=== PATIENT | male | born 1975 | race African-American/Black ===

== ENCOUNTER 2018-04-26 07:56 | Emergency (ER) | payer OTHER ==
--- NOTE | 2018-04-26 09:30 | ER Document Report ---
ED Extremity Problem, Lower - General Chief Complaint: Knee Injury Stated Complaint: FALL/KNEE PAIN Time Seen by Provider: 04/26/18 09:06 Information source: Patient Notes: Patient was walking excellently slipped this morning twisting his left knee. He states he did not fall onto the knee. He states that there is some mild progressive swelling of the left knee. He denies any incident causing slippage such as lightheadedness, dizziness, chest pain, or shortness of breath. Patient complains of pain only to the left knee. TRAVEL OUTSIDE OF THE [place] IN LAST 30 DAYS: No - Related Data Allergies/Adverse Reactions: No Known Allergies Allergy (Verified 04/26/18 07:56) Past Medical History - Social History Smoking Status: Never Smoker Family History: Reviewed & Not Pertinent Patient has suicidal ideation: No Patient has homicidal ideation: No - Past Medical History Cardiac Medical History: Reports: Hx Hypertension Renal/ Medical History: Denies: Hx Peritoneal Dialysis Past Surgical History: Reports: Hx Orthopedic Surgery Physical Exam - Vital signs Vitals: Temp Pulse Resp BP Pulse Ox 98.4 F 77 16 139/90 H 99 04/26/18 08:01 04/26/18 08:01 04/26/18 08:01 04/26/18 08:01 04/26/18 08:01 Notes: Reviewed vital signs and nursing note as charted by RN. CONSTITUTIONAL: Alert and oriented and responds appropriately to questions. Well-appearing; well-nourished HEAD: Normocephalic; atraumatic EXT: Patient has some mild swelling to the left knee. No obvious ligamentous laxity. Neurovascularly intact distally with strong pulses, capillary refill, plantar and flexor extension SKIN: No acute lesions noted NEURO: CN 2-12 intact; 5/5 bilateral upper and lower extremity strength with sensation intact to light touch PSYCH: The patient's mood and manner are appropriate. Grooming and personal hygiene are appropriate. Course - Re-evaluation Re-evalutation: 04/26/18 09:29 Given the history and physical examination we will perform an x-ray of the left knee and provide pain medications. If the x-ray shows no obvious fractures we will place the patient in a knee immobilizer, crutches, and have the patient follow-up with orthopedics for possibly reevaluation and/or MRI. 03/16/19 10:38 X-ray shows no obvious fractures. The tech will place the patient in a knee immobilizer and will provide crutches with strict return precautions and follow- up with orthopedics. - Vital Signs Vital signs: Temp Pulse Resp BP Pulse Ox 98.4 F 77 16 139/90 H 99 04/26/18 08:01 04/26/18 08:01 04/26/18 08:01 04/26/18 08:01 04/26/18 08:01 Discharge - Discharge Clinical Impression: Left knee sprain Qualifiers: Encounter type: initial encounter Involved ligament of knee: unspecified ligament Qualified Code(s): S83.92XA - Sprain of unspecified site of left knee, initial encounter Condition: Good Disposition: HOME, SELF-CARE Additional Instructions: Please ice, rest, and elevate the leg when not ambulating. Please take 600 mg of Motrin and 1 g of Tylenol every 6 hours as needed for pain. Please follow-up with orthopedics as we have provided. Referrals: HOA LUO, [ACTIVE STAFF] - Follow up as needed
[2018-04-26] MEDS ORDERED: HYDROCODONE/ACETAMINOPHEN 5-325 MG TABLET PO ONE (10:04)
--- NOTE | 2018-04-26 10:11 | RADIOLOGY REPORT (SQ) ---
EXAM DESCRIPTION: KNEE LEFT 4 VIEW COMPLETED DATE/TIME: 04/26/2018 10:00 am REASON FOR STUDY: 16; fall COMPARISON: None. NUMBER OF VIEWS: Four views. TECHNIQUE: AP, lateral, and both oblique radiographic images acquired of the left knee. LIMITATIONS: None. FINDINGS: MINERALIZATION: Normal. BONES: No acute fracture or dislocation of the right knee. There is a possible chronic fracture defo rmity of the medial tibial plateau. Correlate with clinical history. JOINT: No effusion. SOFT TISSUES: No soft tissue swelling. No radio-opaque foreign body. OTHER: No other significant finding. IMPRESSION: No acute fracture or dislocation of the right knee. There is a possible chronic fractur e deformity of the medial tibial plateau. There is no knee joint effusion. Correlate with clinical history. TECHNICAL DOCUMENTATION: JOB ID: [id number] [employer]- All Rights Reserved Reading location - IP/workstation name: [email or web address]
[2018-04-26 10:58] VITALS: BP 143/95
== END 2018-04-26 10:59 | disposition home or self-care (01) ==
LOC: ER 07:56
DX: S83.92XA Sprain of unspecified site of left knee, initial encounter (principal); M25.562 Pain in left knee; W18.40XA Slipping, tripping and stumbling without falling, unspecified, initial encounter; I10 Essential (primary) hypertension
CPT/HCPCS: 99283; 73564; L1830

== ENCOUNTER 2018-10-28 16:20 | Emergency (ER) | payer OTHER ==
--- NOTE | 2018-10-28 16:50 | RADIOLOGY REPORT (SQ) ---
EXAM DESCRIPTION: CHEST SINGLE VIEW COMPLETED DATE/TIME: 10/28/2018 4:38 pm REASON FOR STUDY: bed 19 cp COMPARISON: None. NUMBER OF VIEWS: One view. TECHNIQUE: Single frontal radiographic view of the chest acquired. LIMITATIONS: Low lung volumes. FINDINGS: LUNGS AND PLEURA: No opacities, masses or pneumothorax. No pleural effusion. MEDIASTINUM AND HILAR STRUCTURES: No masses. Contour normal. HEART AND VASCULAR STRUCTURES: Heart normal in size. Normal vasculature. BONES: No acute findings. HARDWARE: None in the chest. OTHER: No other significant finding. IMPRESSION: Negative chest allowing for low lung volumes. TECHNICAL DOCUMENTATION: JOB ID: [id number] [employer]- All Rights Reserved Reading location - IP/workstation name: [email or web address]
[2018-10-28] MEDS ORDERED: MORPHINE SULFATE 10 MG/ML INJ IV ONE ×2 (16:59→18:25)
[2018-10-28] MEDS ORDERED: ONDANSETRON HCL INJ/PF 4 MG/2 ML SDV IV ONE (16:59)
[2018-10-28 17:06] LABS: ABSOLUTE BASOPHILS # (AUTO) 0.1 10^3/uL (0.0-0.2); ABSOLUTE EOSINOPHILS # (AUTO) 0.1 10^3/uL (0.0-0.6); ABSOLUTE LYMPHOCYTES (AUTO) 2.7 10^3/uL (0.5-4.7); ABSOLUTE MONOCYTES (AUTO) 0.5 10^3/uL (0.1-1.4); BASOPHILS % (AUTO) 0.8 % (0-2); EOSINOPHILS % (AUTO) 1.3 % (0-6); HEMATOCRIT 44.2 % (37.9-51.0); HEMOGLOBIN 14.9 g/dL (13.5-17.0); LYMPHOCYTES % (AUTO) 42.8 % (13-45); MEAN CORPUSCULAR HEMOGLOBIN 28.5 pg (27.0-33.4); MEAN CORPUSCULAR HGB CONC 33.7 g/dL (32.0-36.0); MEAN CORPUSCULAR VOLUME 85 fl (80-97); PLATELET COUNT 225 10^3/uL (150-450); RED BLOOD COUNT 5.23 10^6/uL (4.35-5.55); RED CELL DISTRIBUTION WIDTH 14.1 % (11.5-14.0); SEGMENTED NEUTROPHILS % (AUTO) 47.1 % (42-78); TOTAL CELLS COUNTED % (AUTO) 100 %; WHITE BLOOD COUNT 6.3 10^3/uL (4.0-10.5)
--- NOTE | 2018-10-28 17:09 | ER Document Report ---
ED General - General Chief Complaint: Chest Pain Stated Complaint: CHEST PAIN Time Seen by Provider: 10/28/18 16:57 Primary Care Provider: HOA VAZQUEZ MD [ACTIVE STAFF] - Follow up in 3-5 days [facility] [Primary Care Provider] - Follow up as needed TRAVEL OUTSIDE OF THE [place] IN LAST 30 DAYS: No - HPI Notes: Patient presents with sudden onset of sharp epigastric pain that started approximately 330 doing nothing. It radiates to his right upper quadrant. He still has his gallbladder. No history of heart attack or stroke. No recent cough congestion fevers. Mild nausea with no vomiting. Lower abdominal pain or diarrhea. - Related Data Allergies/Adverse Reactions: No Known Allergies Allergy (Verified 04/26/18 07:56) Past Medical History - Social History Smoking Status: Unknown if Ever Smoked Family History: Reviewed & Not Pertinent - Past Medical History Cardiac Medical History: Reports: Hx Hypertension Renal/ Medical History: Denies: Hx Peritoneal Dialysis Past Surgical History: Reports: Hx Orthopedic Surgery Review of Systems - Review of Systems Constitutional: No symptoms reported EENT: No symptoms reported Cardiovascular: No symptoms reported Respiratory: No symptoms reported Gastrointestinal: See HPI Genitourinary: No symptoms reported Male Genitourinary: No symptoms reported Musculoskeletal: No symptoms reported Skin: No symptoms reported Hematologic/Lymphatic: No symptoms reported Neurological/Psychological: No symptoms reported Physical Exam - Vital signs Vitals: Resp Pulse Ox 23 H 96 10/28/18 16:30 10/28/18 16:30 - General General appearance: Appears well, Alert, Anxious - HEENT Head: Normocephalic, Atraumatic Eyes: Normal Conjunctiva: Normal Cornea: Normal Extraocular movements intact: Yes Pupils: PERRL - Respiratory Respiratory status: No respiratory distress Chest status: Nontender Breath sounds: Normal Chest palpation: Other - Reproducible pain when pushing in right upper quadrant - Cardiovascular Rhythm: Regular Heart sounds: Normal auscultation Murmur: No Friction rub: No Marvel's crunch: No Gallop: None auscultated - Abdominal Inspection: Normal Distension: No distension Bowel sounds: Normal Tenderness: Sue's sign - Back Back: Normal, Nontender - Extremities General upper extremity: Normal inspection, Normal ROM General lower extremity: Normal inspection, Normal ROM - Neurological Neuro grossly intact: Yes Cognition: Normal Orientation: AAOx4 Course - Re-evaluation Re-evalutation: 10/28/18 18:39 Patient's discomfort controlled emergency department. Patient shows gallstones on ultrasound without any evidence of infection. Will provide surgery referral and return precautions regarding any fever or uncontrolled vomiting or actual pain return to emergency department for further evaluation. - Vital Signs Vital signs: Temp Pulse Resp BP Pulse Ox 97.8 F 15 149/97 H 96 10/28/18 18:49 10/28/18 18:36 10/28/18 18:36 10/28/18 18:36 - Laboratory Result Diagrams: 10/28/18 16:00 10/28/18 16:00 Laboratory results interpreted by me: 10/28/18 10/28/18 16:00 16:00 RDW 14.1 H AST 84 H Creatine Kinase 1087 H - EKG Interpretation by Me EKG shows normal: Sinus rhythm Rate: Normal Rhythm: NSR - Normal axis, normal intervals, no concerning ST depressions or elevations Discharge - Discharge Clinical Impression: Biliary colic Condition: Good Disposition: HOME, SELF-CARE Instructions: Antacid Therapy ([facility]), Gallbladder Disease ([facility]), Low-Fat Diet ([facility]) Prescriptions: Ranitidine HCl [Zantac] 150 mg PO BID #60 tablet Ondansetron [Zofran Odt 4 mg Tablet] 1 tab PO ASDIR PRN #15 tab.rapdis PRN Reason: For Nausea/Vomiting Referrals: [facility] [Primary Care Provider] - Follow up as needed HOA VAZQUEZ MD [ACTIVE STAFF] - Follow up in 3-5 days
[2018-10-28 17:12] LABS: ALBUMIN 4.9 g/dL (3.5-5.0); ALKALINE PHOSPHATASE 65 U/L (38-126); ANION GAP 11 (5-19); ASPARTATE AMINO TRANSFERASE 84 U/L (17-59); BILIRUBIN,DIRECT 0.3 mg/dL (0.0-0.4); BILIRUBIN,TOTAL 0.5 mg/dL (0.2-1.3); BLOOD UREA NITROGEN 11 mg/dL (7-20); CALCIUM 9.7 mg/dL (8.4-10.2); CARBON DIOXIDE 30 mmol/L (22-30); CHLORIDE 103 mmol/L (98-107); CREATINE KINASE 1087 U/L (55-170); GLUCOSE 92 mg/dL (75-110); POTASSIUM 3.7 mmol/L (3.6-5.0); TOTAL PROTEIN 7.8 g/dL (6.3-8.2)
[2018-10-28 18:01] LABS: CREATINE KINASE MB 1.19 ng/mL (<4.55)
[2018-10-28 18:02] LABS: TROPONIN I < 0.012 ng/mL
--- NOTE | 2018-10-28 18:33 | RADIOLOGY REPORT (SQ) ---
EXAM DESCRIPTION: U/S ABDOMEN LIMITED W/O DOP COMPLETED DATE/TIME: 10/28/2018 6:16 pm REASON FOR STUDY: RUQ pain COMPARISON: None. TECHNIQUE: Dynamic and static grayscale images acquired of the abdomen and recorded on PACS. Additio nal selected color Doppler and spectral images recorded. LIMITATIONS: Limited visualization. Poor acoustical window FINDINGS: PANCREAS: Not visualized. LIVER: Normal size Mild fatty infiltration. No focal masses. LIVER VASCULATURE: Normal directional flow of the main portal vein and hepatic veins. GALLBLADDER: Gallstone(s). No pericholecystic fluid. No wall thickening. ULTRASOUND-DETECTED MINA'S SIGN: Negative. INTRAHEPATIC DUCTS AND COMMON DUCT: CBD and intrahepatic ducts normal caliber. No filling defects. INFERIOR VENA CAVA: Normal flow. AORTA: No aneurysm. RIGHT KIDNEY: Normal size. Normal echogenicity. No solid or suspicious masses. No hydronephros is. No calcifications. PERITONEAL AND RIGHT PLEURAL SPACE: No ascites or effusions. OTHER: No other significant findings. IMPRESSION: Cholelithiasis. No evidence of acute cholecystitis. TECHNICAL DOCUMENTATION: JOB ID: [id number] [employer]- All Rights Reserved Reading location - IP/workstation name: [email or web address]
[2018-10-28 18:38] VITALS: BP 149/97
--- NOTE | 2018-10-28 18:41 | EKG REPORT ---
SEVERITY:- NORMAL ECG - SINUS RHYTHM : Confirmed by: Milton Ortiz MD 28-Oct-2018 18:39:45
== END 2018-10-28 18:55 | disposition home or self-care (01) ==
LOC: ER 16:20
DX: K80.20 Calculus of gallbladder without cholecystitis without obstruction (principal); R10.13 Epigastric pain; R10.11 Right upper quadrant pain; R11.0 Nausea; I10 Essential (primary) hypertension
CPT/HCPCS: 93005; 96376; 99284; 96374; 96375; 36415; 82553; 82550; 83690; 83735; 85025; 80053; 84484; 71045; 76705; 93010; J2270; J2405

== ENCOUNTER → 2018-11-19 | Outpatient (CLI) | payer OTHER ==
[2018-11-19 17:04] LABS: ANION GAP 11 (5-19); BLOOD UREA NITROGEN 12 mg/dL (7-20); CALCIUM 10.1 mg/dL (8.4-10.2); CARBON DIOXIDE 32 mmol/L (22-30); CHLORIDE 98 mmol/L (98-107); GLUCOSE 96 mg/dL (75-110); POTASSIUM 4.3 mmol/L (3.6-5.0)
== END ==
LOC: OD 16:05
PROVIDERS: ATTEND Surgery
DX: Z01.818 Encounter for other preprocedural examination (principal); K42.0 Umbilical hernia with obstruction, without gangrene; I10 Essential (primary) hypertension; G47.30 Sleep apnea, unspecified; E66.9 Obesity, unspecified; Z86.010 Personal history of colon polyps; Z78.9 Other specified health status
CPT/HCPCS: 36415; 80048

== ENCOUNTER 2018-11-27 05:36 | Day surgery (SDC) | payer OTHER ==
[~2018-11-27 05:36] MED LIST: ACETAMINOPHEN 325 MG TABLET PO PRN; CEFAZOLIN SODIUM 2 GM in DEXTROSE 5%-WATER 100 ML IV PRN; IBUPROFEN 800 MG in NORMAL SALINE 250 ML IV PRN; LACTATED RINGERS 1000 ML IV PRN; LIDOCAINE 0.5% INJ-PF (5 MG/ML) 50 ML SDV SUBCUT PRN; PREGABALIN 50 MG CAPSULE PO PRN
[2018-11-27] MEDS ORDERED: PREGABALIN 50 MG CAPSULE ONE (06:04)
[2018-11-27] MEDS ORDERED: ACETAMINOPHEN 325 MG TABLET ONE (06:04)
[2018-11-27] MEDS ORDERED: BUPIVACAINE HCL 0.25 % INJ/PF (2.5 MG/1 ML) 30 ML VIAL ONE (06:44)
[2018-11-27] MEDS ORDERED: MIDAZOLAM 2 MG/2 ML INJ ONE (06:57)
[2018-11-27] MEDS ORDERED: FENTANYL CITRATE INJ/PF 100 MCG/2 ML AMPUL ONE (06:57)
[2018-11-27] MEDS ORDERED: HYDROMORPHONE HCL INJ/PF 2 MG/ML AMPULE ONE (06:57)
[2018-11-27] MEDS ORDERED: PROPOFOL INJ 200 MG/20 ML VIAL IV ONE (06:58)
[2018-11-27] MEDS ORDERED: LIDOCAINE 2% INJ (20 MG/ML) 20 ML MDV ONE (06:59)
[2018-11-27] MEDS ORDERED: MEPERIDINE HCL/PF INJ 25 MG/1 ML DISP.SYRIN IV PRN (07:55)
[2018-11-27] MEDS ORDERED: OXYCODONE-ACETAMINOPHEN 5-325 MG TABLET PO PRN ×2 (07:55)
[2018-11-27] MEDS ORDERED: MORPHINE SULFATE 10 MG/ML INJ IV PRN (07:55)
[2018-11-27] MEDS ORDERED: PROMETHAZINE HCL INJ 25 MG/1 ML VIAL IV PRN (07:55)
[2018-11-27] MEDS ORDERED: FENTANYL CITRATE INJ/PF 100 MCG/2 ML AMPUL IV PRN ×3 (07:55)
[2018-11-27] MEDS ORDERED: DIPHENHYDRAMINE HCL 50 MG/ML VIAL IV PRN (07:55)
[2018-11-27] MEDS ORDERED: ONDANSETRON HCL INJ/PF 4 MG/2 ML SDV IV PRN (07:55)
--- NOTE | 2018-11-27 09:53 | Discharge Summary ---
Discharge Summary (SDC) - Discharge Final Diagnosis: Symptomatic umbilical hernia. Date of Surgery: 11/27/18 Discharge Date: 11/27/18 Condition: Stable Treatment or Instructions: Discharge home. Diet as tolerated. Activity: No lifting greater than 10 pounds x 6 weeks. Follow-up with me in 7 to 10 days. [place] 10/325 mg p.o. every 6 hours as needed for pain. Ibuprofen 800 mg p.o. 3 times daily with meals. Okay to shower on Saturday. No tub baths or swimming pools x2 weeks. Referrals: [facility] [Primary Care Provider] - Discharge Diet: As Tolerated Respiratory Treatments at Home: Deep Breathing/Coughing, Incentive Spirometer Discharge Activity: No Lifting Over 10 Pounds, No Lifting/Push/Pulling Home Care Assistance: None Needed Report the Following to Your Physician Immediately: Shortness of Breath, Nausea, Vomiting, Increase in Pain, Fever over 101 Degrees, Unusual Bleeding
[2018-11-27] MEDS ORDERED: ACETAMINOPHEN 1,000 MG/100 ML RTUPB IV ONE ×2 (10:04→10:45)
[2018-11-27] MEDS ORDERED: HYDROCODONE/ACETAMINOPHEN 10-325 MG TABLET PO PRN (10:22)
--- NOTE | 2018-11-27 10:50 | Operative Report ---
Nonrecallable Operative Report DATE OF SURGERY: 11/27/18 PREOPERATIVE DIAGNOSIS: Symptomatic, incarcerated umbilical hernia POSTOPERATIVE DIAGNOSIS: Symptomatic, incarcerated umbilical hernia OPERATION: Robot-assisted laparoscopic umbilical hernia repair with mesh. SURGEON: CHANEL OCASIO ANESTHESIA: GA TISSUE REMOVED OR ALTERED: None COMPLICATIONS: None apparent ESTIMATED BLOOD LOSS: Minimal PROCEDURE: Drains/implants: 10 x [address] hernia mesh. Procedure in detail: After informed consent was obtained, the patient was brought to the operating room and laid in the supine position. The area of the abdomen was prepped and draped in a normal sterile fashion. A 15 blade scalpel was used to create an incision in the left upper quadrant. The 5 mm trocar and 5 mm camera were inserted into the abdominal cavity through the use of the Optiview technique. Once the trocar was inserted, gas insufflation was attached and pneumoperitoneum was achieved. Next a left lower quadrant 8 mm robotic trocar was placed under direct laparoscopic visualization, as was a 12 mm left lateral balloon trocar. The 5 mm trocar was then removed, and replaced with an 8 mm robotic trocar. The robot was then brought over the patient and docked appropriately. I then assumed my position at the surgeon's console. Attention was then turned to the umbilical hernia defect. There was incarcerated omentum within the defect. The omentum was reduced using blunt dissection, sharp dissection, and electrocautery. Next, all the preperitoneal fat was freed from the defect using sharp dissection, blunt dissection, and electrocautery. Once this was completed, the defect was closed using #1 V Lock Suture in simple running fashion. After this was completed, a 10 x [address] hernia mesh was inserted into the abdominal cavity. It was apposed to the anterior abdominal wall using the EPS. The mesh was sutured to the anterior abdominal wall using 2-0 permanent V lock suture in simple running fashion. The mesh was then inspected, and found to lie in very good position. The robot was then undocked, and I scrubbed back into the case. The 8 mm trocar sites were closed using 0 Vicryl suture in simple interrupted fashion with the aid of the Rc-Alessandro device. The 12 mm trocar site was closed using 0 Vicryl suture in [id number] fashion, also with the aid of the Rc-Alessandro device. The overlying skin was closed using 4-0 Vicryl Rapide suture in subcuticular fashion. Dressings were placed, and the procedure was concluded. All sponge, instrument, needle counts were correct x2. Condition: Stable. Marlen Wilkins PA-C was scrubbed and present the entirety of the procedure. She assisted with all portions of the procedure including placement of the trochars, docking of the robot, exchanging the robotic instruments, insertion of the mesh, closure of the fascia, and closure of the skin.
[2018-11-27] MEDS ORDERED: GLYCOPYRROLATE INJ 0.4 MG/2 ML VIAL ONE (10:58)
[2018-11-27] MEDS ORDERED: DEXAMETHASONE SOD PHOSPHATE INJ 4 MG/1 ML VIAL ONE (10:58)
[2018-11-27] MEDS ORDERED: SUCCINYLCHOLINE CHLORIDE INJ 200 MG/10 ML VIAL ONE (10:58)
[2018-11-27] MEDS ORDERED: ONDANSETRON HCL INJ/PF 4 MG/2 ML SDV ONE (10:58)
[2018-11-27] MEDS ORDERED: NEOSTIGMINE METHYLSULFATE 10 MG/10 ML VIAL ONE (10:58)
[2018-11-27] MEDS ORDERED: ROCURONIUM BROMIDE INJ 50 MG/5 ML VIAL IV ONE (10:58)
[2018-11-27] MEDS ORDERED: HYDROCODONE/ACETAMINOPHEN 10-325 MG TABLET ONE (11:10)
[2018-11-27 12:48] VITALS: BP 146/89
[2018-11-27] MEDS ORDERED: IBUPROFEN 800 MG TABLET PO SCH (14:00)
== END 2018-11-27 12:15 | disposition home or self-care (01) ==
LOC: OROUT 05:36
PROVIDERS: ATTEND Surgery
DX: K42.0 Umbilical hernia with obstruction, without gangrene (principal); I10 Essential (primary) hypertension; G47.30 Sleep apnea, unspecified; Z79.899 Other long term (current) drug therapy; Z01.818 Encounter for other preprocedural examination
CPT/HCPCS: 49653; S2900; 36415; 790; 84132; 86850; 86900; 86901; C1781; J0131; J0330; J0690; J1100; J1170; J1741; J2250; J2405; J2704; J2710; J3010; J3490; J7050; J7060